=== PATIENT | female | born 1990 | race African-American/Black ===

== ENCOUNTER 2021-11-03 13:04 | Emergency (ER) | payer OTHER, SELFPAY ==
--- NOTE | ~2021-11-03 | CT_ITS ---
EXAMINATION: CT brain wo con DATE: 11/03/2021 14:14 INDICATION: Head injury. TECHNIQUE: Computed tomography (CT) of the head was performed without intravenous contrast. The mA wa s adjusted according to patient size. Iterative reconstruction technique was employed. The dose-lengt h product was 605.33 mGy-cm. COMPARISON: None FINDINGS: There is no intracranial hemorrhage, acute infarction, or abnormal intracranial mass lesion . The ventricles are normal in size. There is mild mucosal thickening in left ethmoid sinus. The orbi ts are normal. The mastoid air cells are normal. IMPRESSION: 1. Normal brain. Reviewed, dictated and finalized at location A. IMPRESSION: 1. Normal brain.
--- NOTE | ~2021-11-03 | CT_ITS ---
EXAMINATION: CT facial bones wo con DATE: 11/03/2021 14:14 INDICATION: Left periorbital injury and pain and swelling. TECHNIQUE: Computed tomography (CT) of the facial bones and maxillofacial region was performed withou t intravenous contrast. Automated exposure control and iterative reconstruction technique were employ ed. The dose-length product was 409.88 mGy-cm. COMPARISON: None. FINDINGS: There is left periorbital soft tissue swelling. There are fractures of the left nasal bone and left nasal process of maxilla. There is a nondisplaced fracture of floor of left orbit. There is mild mucosal thickening in the left ethmoid and maxillary sinuses. There is a carious lesion of tooth 12 with periapical lucency. IMPRESSION: 1. Fractures of left nasal bone, left nasal process of maxilla, and floor of left orbit. 2. Dental disease. Reviewed, dictated and finalized at location A. IMPRESSION: 1. Fractures of left nasal bone, left nasal process of maxilla, and floor of le ft orbit. 2. Dental disease.
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
[2021-11-03 13:07] VITALS: BP 128/90; PULSE 69; RESP 16; O2SAT 100
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
[2021-11-03 13:51] VITALS: PULSE 57; RESP 15
[2021-11-03 13:54] LABS: Basophils Percent Auto 0.4 % (0.2-1.2); Eosinophils Percent Auto 0.4 % (0-4.4); Hematocrit 40.2 % (37.0-47.0); Hemoglobin 12.2 g/dL (12.0-15.0); Immature Granulocyte Absolute 0.02 K/mm3 (0.00-0.031); Immature Granulocyte Percent A 0.3 % (0-0.5); Lymphocytes Absolute Auto 1.59 K/mm3 (0.9-3.2); Lymphocytes Percent Auto 22.2 % (18.3-44.2); Mean Corpuscular HGB Conc 30.3 g/dl (32-36); Mean Corpuscular Hemoglobin 24.9 pg (26-34); Mean Platelet Volume 10.7 fl (7.4-10.4); Monocytes Absolute Auto 0.6 K/mm3 (0.1-0.6); Monocytes Percent Auto 8.5 % (2.6-8.5); Neutrophils Absolute Auto 4.9 K/mm3 (1.3-6.7); Neutrophils Percent Auto 68.2 % (45.5-73.1); Platelet Count Result 247 k/mm3 (150-375); Red Cell Distribution Width 16.2 % (11.5-14.5); White Blood Count 7.2 K/mm3 (4.5-10.0)
[2021-11-03] MEDS: MORPHINE SULFATE (*CRX) 4 MG/ML INJ IV PUSH (13:54)
--- NOTE | 2021-11-03 14:00 | PC.NURSE ---
Patient off unit to CT.
[2021-11-03 14:03] LABS: Alanine Aminotransferase 11 U/L (4-35); Albumin Level 4.5 g/dL (3.5-5.1); Alkaline Phosphatase 79 U/L (38-126); Anion Gap 6 mmol/L (8-16); Aspartate Amino Transferase 24 U/L (14-36); Bilirubin,Total 0.4 mg/dL (0.2-1.3); Blood Urea Nitrogen 10 mg/dL (7-17); Calcium 8.5 mg/dL (8.4-10.2); Carbon Dioxide 27 mmol/L (22-30); Chloride 108 mmol/L (98-107); Estimated CRCL calculation 93 ml/min; Estimated Glomerular Filt Rate > 60; Glucose 96 mg/dL (65-110); Sodium 141 mmol/L (137-145)
--- NOTE | 2021-11-03 14:11 | PC.NURSE ---
Patient returned to room from CT.
[2021-11-03 14:13] VITALS: PULSE 56; RESP 17
[2021-11-03 14:15] VITALS: PULSE 54; RESP 18
[2021-11-03 15:08] VITALS: PULSE 57; RESP 19
[2021-11-03] MEDS: FLUORESCEIN SOD 1 MG/STRIP EACH EYE (15:13)
[2021-11-03] MEDS: TETRACAINE HCL 0.5% OPHTH SOLN 4 ML BTL 1 DROP EACH EYE (15:13)
--- NOTE | 2021-11-03 15:14 | PC.NURSE ---
Dr. Koenig back at bedside to update patient on results and plan of care.
[2021-11-03 15:31] LABS: Appearance Urine Clear (Clear); Bilirubin Urine Negative (Negative); Blood Urine Negative (Negative); Color Urine Yellow (Yellow); Glucose Urine UA Negative (Negative); Ketones Urine Negative (Negative); Leukocyte Esterase Ur Negative LEU/UL (Negative); Nitrate Urine Negative (Negative); Protein Urine Negative (Negative); pH Urine 7.5 (5.0-9.0)
[2021-11-03 15:35] LABS: Mucus Urine Rare /lpf; RBC Urine 0-2 /hpf (0-2); Squamous Epithelial Cell Urine Occasional /hpf (Few); WBC Urine 0-3 /hpf
[2021-11-03 15:36] LABS: Add Urine Microscopic? YES
== END 2021-11-03 15:52 | disposition home or self-care (01) ==
PROVIDERS: Emergency Provider Emergency Medicine
DX: S02.2XXA Fracture of nasal bones, initial encounter for closed fracture (principal); S02.32XA Fracture of orbital floor, left side, initial encounter for closed fracture; S02.40DA Maxillary fracture, left side, initial encounter for closed fracture; J45.909 Unspecified asthma, uncomplicated; Y04.2XXA Assault by strike against or bumped into by another person, initial encounter
CPT/HCPCS: 36415; 70450; 70486; 73030; 80053; 81001; 85025; 96365; 96375; 99284; J0131; J2270

== ENCOUNTER 2021-12-09 23:46 | Emergency (ER) | payer OTHER, SELFPAY ==
--- NOTE | ~2021-12-09 | CT_ITS ---
EXAMINATION: CT abdomen pelvis w con DATE: 12/10/2021 01:25 INDICATION: Right lower quadrant abdominal pain. Nausea and vomiting. TECHNIQUE: Computed tomography (CT) of the abdomen and pelvis was performed with 75 mL Omnipaque 300 intravenous contrast. Automated exposure control and iterative reconstruction technique were employed . The dose-length product was 365.68 mGy-cm. COMPARISON: None. FINDINGS: The visualized portions of the lung bases are clear without pneumonia or pleural effusion. The heart size is normal. No pericardial effusion. The liver, gallbladder, spleen, pancreas, adrenal glands, and kidneys are normal. There are no dilated loops of bowel. The appendix is normal. There is a small volume of pelvic ascites measuring greater than simple fluid in attenuation. There are no pa thologically enlarged lymph nodes. There is mild lumbar spondylosis. IMPRESSION: 1. Small volume of pelvic ascites, likely an exudate. Reviewed, dictated and finalized at location A.
[2021-12-09 23:48] VITALS: BP 149/103; PULSE 60; RESP 18; TEMP 36.3; O2SAT 100
[2021-12-10 00:13] LABS: Appearance Urine Clear (Clear); Bilirubin Urine Negative (Negative); Color Urine Yellow (Yellow); Glucose Urine UA Negative (Negative); Ketones Urine 1+ mg/dL (Negative); Leukocyte Esterase Ur Trace LEU/UL (Negative); Nitrate Urine Negative (Negative); Protein Urine Negative (Negative); Specific Grav Ur 1.025 (1.001-1.035); Urobilinogen Urine 0.2 mg/dL (<2.0); pH Urine 6.5 (5.0-9.0)
[2021-12-10 00:15] LABS: Basophils Percent Auto 0.4 % (0.2-1.2); Eosinophils Absolute Auto 0.1 K/mm3 (0-0.3); Eosinophils Percent Auto 0.7 % (0-4.4); Hematocrit 38.6 % (37.0-47.0); Hemoglobin 11.7 g/dL (12.0-15.0); Immature Granulocyte Absolute 0.03 K/mm3 (0.00-0.031); Immature Granulocyte Percent A 0.3 % (0-0.5); Lymphocytes Absolute Auto 2.23 K/mm3 (0.9-3.2); Lymphocytes Percent Auto 22.1 % (18.3-44.2); Mean Corpuscular HGB Conc 30.3 g/dl (32-36); Mean Corpuscular Hemoglobin 24.9 pg (26-34); Mean Corpuscular Volume 82.3 fl (80-100); Mean Platelet Volume 11.3 fl (7.4-10.4); Monocytes Absolute Auto 0.6 K/mm3 (0.1-0.6); Monocytes Percent Auto 5.7 % (2.6-8.5); Neutrophils Absolute Auto 7.2 K/mm3 (1.3-6.7); Neutrophils Percent Auto 70.8 % (45.5-73.1); Platelet Count Result 196 k/mm3 (150-375); Red Blood Count 4.69 M/mm3 (4.2-5.4); Red Cell Distribution Width 15.3 % (11.5-14.5); White Blood Count 10.1 K/mm3 (4.5-10.0)
[2021-12-10 00:16] LABS: Bacteria Urine Trace /hpf; Mucus Urine Heavy /lpf; RBC Urine 0-2 /hpf (0-2); Squamous Epithelial Cell Urine Many /hpf (Few)
[2021-12-10 00:17] LABS: Add Urine Microscopic? YES; Blood Urine Trace (Negative)
[2021-12-10 00:32] LABS: Alanine Aminotransferase 12 U/L (6-35); Albumin Level 5.1 g/dL (3.5-5.1); Alkaline Phosphatase 85 U/L (38-126); Anion Gap 12 mmol/L (8-16); Aspartate Amino Transferase 29 U/L (14-36); Bilirubin,Total 0.7 mg/dL (0.2-1.3); Blood Urea Nitrogen 9 mg/dL (7-17); Calcium 8.9 mg/dL (8.4-10.2); Carbon Dioxide 25 mmol/L (22-30); Chloride 101 mmol/L (98-107); Estimated CRCL calculation 90 ml/min; Estimated Glomerular Filt Rate > 60; Glucose 84 mg/dL (65-110); Lipase 83 U/L (23-300); Potassium 4.1 mmol/L (3.4-5.0); Sodium 138 mmol/L (137-145)
[2021-12-10] MEDS: SODIUM CHLORIDE 0.9% IV 1,000 ML 999 ML IV CONT (01:00)
[2021-12-10] MEDS: ONDANSETRON INJ 4 MG/2 ML VIAL IV PUSH (01:00)
[2021-12-10] MEDS: ACETAMINOPHEN 500 MG TABLET 1000 MG PO (01:00)
--- NOTE | 2021-12-10 01:10 | PC.NURSE ---
Patient taken to CT via stretcher.
--- NOTE | 2021-12-10 01:42 | ED.ABDPAIN ---
HPI - Abdominal Pain General Chief Complaint: Abdominal Pain Stated Complaint: abdominal pain Time Seen by Provider: 12/10/21 00:49 Source: patient History of Present Illness HPI narrative: Patient presents with abdominal pain nausea and diarrhea. Patient ports she has had symptoms for approximately 1 week. She was between diarrhea and constipation she has nausea and vomiting. Reports her symptoms are exacerbated by eating or drinking anything. Also reports abdominal pain primarily on her right abdomen as well as on her upper abdomen. She denies any urinary symptoms she denies any blood bile or melena in her secretions. She denies any fevers or chills. She denies any recent antibiotics recent travel outside the area, recent camping or drinking from streams. Reports she googled her symptoms and feels like maybe she has IBS. Related Data Allergies Allergy/AdvReac Type Severity Reaction Status Date / Time No Known Allergies Allergy Verified 12/09/21 23:51 Review of Systems Review of Systems: CONSTITUTIONAL: Denies fever, chills, or sweats. EYES: Denies visual changes, redness, or discharge. ENT: Denies rhinorrhea, congestion, sore throat, or otalgia. CARDIOVASCULAR: Denies chest pain, palpitations, or edema. RESPIRATORY: Denies cough or dyspnea. GASTROINTESTINAL: Abdominal pain with nausea vomiting and diarrhea GENITOURINARY: Denies dysuria or hematuria. SKIN: Denies rash or itching. MUSCULOSKELETAL: Denies back pain, joint pain, or myalgia. NEUROLOGIC: Denies headache, numbness, dizziness, or weakness. PSYCHIATRIC: Denies anxiety or depression. All systems reviewed & are unremarkable except as noted in HPI and below PMFSH Past Medical History Medical History Asthma Exam Narrative: GENERAL: Well-appearing, well-nourished, and in no acute distress. HEAD: Normocephalic, atraumatic. EYES: PERRLA and EOMI. ENT: Nares clear, no rhinorrhea or epistaxis. Mucous membranes moist. NECK: Supple. No masses. No JVD ABDOMEN: Diffuse tenderness with guarding in the right lower quadrant soft, nondistended, normal active bowel sounds. EXTREMITIES: Normal range of motion. No edema. SKIN: Warm, dry, no rash. NEURO: No focal deficits. Alert and oriented x3. PSYCH: Normal mood and affect. Course Reevaluation(s) Reevaluation #1: Patient resting comfortably results and plan reviewed with patient. Patient is comfortable outpatient plan. Date: 12/10/21 Time: 03:55 Vital Signs Vital signs: Vital Signs Temperature 36.3 C L 12/09/21 23:48 Pulse Rate 60 12/09/21 23:48 Respiratory Rate 18 12/09/21 23:48 Blood Pressure 149/103 H 12/09/21 23:48 Pulse Oximetry 100 12/09/21 23:48 Temperature 36.3 C L 12/09/21 23:48 Pulse Rate 67 12/10/21 02:46 Respiratory Rate 17 12/10/21 02:46 Blood Pressure 142/100 H 12/10/21 02:46 Pulse Oximetry 100 12/10/21 02:46 MDM - Abdominal Pain MDM Narrative Medical decision making narrative: H&P as above, vss, pt looks clinically well, exam tenderness in the right lower quadrant, labs clinically unremarkable, img with concern for ruptured ovarian cyst versus ruptured ectopic patient took at home negative test she had a repeat negative test here in the ER. Given negative as CT findings to be more consistent with a ruptured hemorrhagic cyst l additional labs/img considered, symptomatic relief available as needed, on reevaluation pt continues to looks clinically well. Suspect cyst with moderate volume of fluid in the pelvis is likely contributing to the patient's pain, dns severe sepsis, severe dehydration, torsion, ectopic . plan to tx/monitor as op w/ pcm f/u findings/plan discussed with pt, pt agree/comfortable with plan, return precautions given Lab Data Result diagrams: 12/10/21 00:05 12/10/21 00:05 Labs: Lab Results 12/10/21 12/10/21 12/10/21 Range/Units
[2021-12-10 02:46] VITALS: BP 142/100; PULSE 67; RESP 17; O2SAT 100
== END 2021-12-10 04:07 | disposition home or self-care (01) ==
PROVIDERS: Emergency Provider Emergency Medicine
DX: N83.201 Unspecified ovarian cyst, right side (principal)
CPT/HCPCS: 36415; 74177; 80053; 81001; 81025; 83690; 85025; 96361; 96374; 99284; A9270; J2405; J7030; Q9967

== ENCOUNTER 2022-10-19 15:31 | Emergency (ER) | payer OTHER, SELFPAY ==
--- NOTE | ~2022-10-19 | XR_ITS ---
EXAM: XR knee RT min 4V DATE: 10/19/2022 16:10 HISTORY: FALL MEDIAL/ANTERIOR PAIN . COMPARISON: None available. FINDINGS: Normal mineralization. No fracture or dislocation. No lytic or blastic lesion. Joint space s are maintained. No erosion or periosteal change. Soft tissues within normal limits. IMPRESSION: No acute osseous finding in the right knee. Reviewed, dictated and finalized at location K.
--- NOTE | ~2022-10-19 | XR_ITS ---
EXAM: XR ankle RT min 3V DATE: 10/19/2022 16:10 HISTORY: FALL LATERAL ANKLE PAIN . COMPARISON: None available. FINDINGS: Normal mineralization. No fracture or dislocation. No lytic or blastic lesion. Joint space s are maintained. No erosion or periosteal change. Soft tissues within normal limits. IMPRESSION: No acute osseous finding in the right ankle. Reviewed, dictated and finalized at location K.
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
[2022-10-19 15:39] VITALS: BP 129/73; PULSE 83; RESP 18; TEMP 36.6; O2SAT 100
== END 2022-10-19 16:30 | disposition home or self-care (01) ==
PROVIDERS: Emergency Provider Nurse Practitioner Family
DX: S93.401A Sprain of unspecified ligament of right ankle, initial encounter (principal); S83.91XA Sprain of unspecified site of right knee, initial encounter; W10.9XXA Fall (on) (from) unspecified stairs and steps, initial encounter; J45.909 Unspecified asthma, uncomplicated
CPT/HCPCS: 73564; 73610; 99214; G0463